=== PATIENT | male | born 1995 | race Caucasian/White ===

== ENCOUNTER 2018-06-28 19:41 | Emergency (ER) | payer OTHER ==
--- NOTE | 2018-06-28 21:34 | EDPHY ---
H & P Stated Complaint: 2 WKS: 'WEIRD FEELING IN MY HEAD', FEELINGS OF THROAT SWELLING Time Seen by Provider: 06/28/18 21:43 HPI/ROS: HPI CHIEF COMPLAINT: Anxiety, throat discomfort, pressure behind ears, palpitations HISTORY OF PRESENT ILLNESS: This is a very pleasant 22-year-old male, no significant medical history, otherwise healthy, suffers from anxiety and depression he presents emergency room stating he feels very anxious additionally reports that approximately 2-3 weeks ago he felt like his head was going to explode. He no longer feels this. Ever since then he has been concerned that his "brain has been swelling" he denies fever. Additionally reports that he has had a sore throat. He reports they went to urgent care and had a negative strep and negative mono. He also reports at times he wakes up feeling anxious and his heart racing. He denies chest pain. He denies current fever. Currently denies any headache neck pain neck stiffness, denies vomiting or diarrhea. Denies recent illness. Past Medical History: Anxiety and depression. Not on any medications. Past Surgical History: Denies recent surgical history Social History: Smokes marijuana. Denies drugs or regular use alcohol tobacco. [employer] student. Family History: Noncontributory ROS REVIEW OF SYSTEMS: 10 Systems were reviewed and negative with the exception of the elements mentioned in the history of present illness. Exam Constitutional appears well nontoxic no acute distress, triage nursing summary reviewed, vital signs reviewed, awake/alert. Vital signs stable. Eyes normal conjunctivae and sclera, EOMI, PERRLA. TMs visualized bilaterally some fluid behind both TMs. But no signs of infection. HENT posterior pharynx mild erythema, 3+ tonsillar bed symmetrical, no exudate , no [employer] RPA, uvula midline moist mucus membranes, no epistaxis, neck supple/ no meningismus, no raccoon eyes. Respiratory clear to auscultation bilaterally, normal breath sounds, no respiratory distress, no wheezing. Cardiovascular rate normal, regular rhythm, no murmur, no edema, distal pulses normal. Gastrointestinal soft, non-tender, no rebound, no guarding, normal bowel sounds, no distension, no pulsatile mass. Genitourinary no CVA tenderness. Musculoskeletal no midline vertebral tenderness, full range of motion, no calf swelling, no tenderness of extremities, no meningismus, good pulses, neurovascularly intact. Skin pink, warm, & dry, no rash, skin atraumatic. Neurologic nonfocal normal neurological exam. awake, alert and oriented x 3, AAOx3, moves all 4 extremities equally, motor intact, sensory intact, CN II-XII intact, normal cerebellar, normal vision, normal speech. Psychiatric normal mood/affect. Heme/Lymph/Immune no lymphadenopathy. Differential Diagnosis: Includes but is not limited to in a particular order acute anxiety, panic attack, viral pharyngitis, strep pharyngitis, cardiac arrhythmia, electrolyte disturbance, anemia Medical Decision Making: Plan for this patient IV establishment IV fluid bolus , basic blood work, electrolytes, EKG, chest x-ray, throat swab strep. Forsyth test. Re-evaluation: EKG interpretation by me on record in [employer] system. Impression time of EKG 2154: Ectopic atrial rhythm 82. No signs of acute ischemia no signs of cardiac arrhythmia no signs of WPW or Brugada. ED x-ray chest one view: Negative for acute cardiopulmonary disease. 2239 the patient reports to me he is having anxiety attack. He is requesting anxiety medicine. I have ordered this patient 1 mg IV Ativan Discussed the patient's EKG results with him. He has a ectopic atrial rhythm he has been on the monitor for over 2 hr without any signs of cardiac arrhythmia. He denies any chest pain or shortness of breath. TSH has been ordered and is pending. He will need to follow up this. Return precautions discussed with him. Additionally for palpitations he may follow up with Cardiology. Return emergency room if chest pain shortness of breath, palpitations, not doing well. He is comfortable this plan. Father at bedside is comfortable this plan. 1219: Patient received 1 mg IV Ativan is doing much better this his anxiety is well controlled, here in emergency room recommend following up his primary care doctor about his anxiety. Source: Patient - Personal History Current Tetanus/Diphtheria Vaccine: Yes - Medical/Surgical History Hx Asthma: No Hx Chronic Respiratory Disease: No Hx Diabetes: No Hx Cardiac Disease: No Hx Renal Disease: No Hx Cirrhosis: No Hx Alcoholism: No Hx HIV/AIDS: No Hx Splenectomy or Spleen Trauma: No Other PMH: DENIES - Social History Smoking Status: Never smoked Constitutional: Initial Vital Signs Temperature (C) 36.8 C 06/28/18 19:53 Heart Rate 88 06/28/18 19:53 Respiratory Rate 20 06/28/18 19:53 Blood Pressure 147/78 H 06/28/18 19:53 O2 Sat (%) 97 06/28/18 19:53 O2 Delivery Mode Room Air Allergies/Adverse Reactions: No Known Allergies Allergy (Unverified 06/28/18 19:52) Home Medications: Medication Instructions Recorded Azithromycin 06/28/18 Caffeine 06/28/18 Prednisone 06/28/18 Medical Decision Making - Diagnostics Imaging Results: Imaging Impressions Chest X-Ray 06/28/18 21:42 Impression: Normal chest x-ray. - Data Points Laboratory Results: Laboratory Results 06/28/18 21:55 06/28/18 21:55 06/28/18 06/28/18 06/28/18 21:55 21:55 21:55 WBC 13.09 10^3/uL H 10^3/uL (3.80-9.50) RBC 5.38 10^6/uL 10^6/uL (4.40-6.38) Hgb 16.7 g/dL g/dL (13.7-17.5) Hct 49.1 % % (40.0-51.0) MCV 91.3 fL fL (81.5-99.8) MCH 31.0 pg pg (27.9-34.1) MCHC 34.0 g/dL g/dL (32.4-36.7) RDW 12.9 % % (11.5-15.2) Plt Count 285 10^3/uL 10^3/uL (150-400) MPV 9.5 fL fL (8.7-11.7) Neut % (Auto) 72.8 % % (39.3-74.2) Lymph % (Auto) 20.6 % % (15.0-45.0) [place] % (Auto) 5.2 % % (4.5-13.0) Eos % (Auto) 0.3 % L % (0.6-7.6) Baso % (Auto) 0.6 % % (0.3-1.7) Nucleat RBC Rel Count 0.0 % % (0.0-0.2) Absolute Neuts (auto) 9.53 10^3/uL H 10^3/uL (1.70-6.50) Absolute Lymphs (auto) 2.69 10^3/uL 10^3/uL (1.00-3.00) Absolute Monos (auto) 0.68 10^3/uL 10^3/uL (0.30-0.80) Absolute Eos (auto) 0.04 10^3/uL 10^3/uL (0.03-0.40) Absolute Basos (auto) 0.08 10^3/uL 10^3/uL (0.02-0.10) Absolute Nucleated RBC 0.00 10^3/uL 10^3/uL (0-0.01) Immature Gran % 0.5 % % (0.0-1.1) Immature Gran # 0.07 10^3/uL 10^3/uL (0.00-0.10) Sodium 136 mEq/L mEq/L (135-145) Potassium 3.5 mEq/L mEq/L (3.5-5.2) Chloride 105 mEq/L mEq/L (97-110) Carbon Dioxide 24 mEq/l mEq/l (22-31) Anion Gap 7 mEq/L mEq/L (6-14) BUN 21 mg/dL mg/dL (7-23) Creatinine 0.9 mg/dL mg/dL (0.7-1.3) Estimated GFR > 60 Glucose 85 mg/dL mg/dL (70-100) Calcium 9.4 mg/dL mg/dL (8.5-10.4) Monoscreen NEGATIVE (NEGATIVE) Group A Strep Screen Group A Strep DNA 06/28/18 21:50 WBC RBC Hgb Hct MCV MCH MCHC RDW Plt Count MPV Neut % (Auto) Lymph % (Auto) [place] % (Auto) Eos % (Auto) Baso % (Auto) Nucleat RBC Rel Count Absolute Neuts (auto) Absolute Lymphs (auto) Absolute Monos (auto) Absolute Eos (auto) Absolute Basos (auto) Absolute Nucleated RBC Immature Gran % Immature Gran # Sodium Potassium Chloride Carbon Dioxide Anion Gap BUN Creatinine Estimated GFR Glucose Calcium Monoscreen Group A Strep Screen NEGATIVE (NEGATIVE) Group A Strep DNA Pending Medications Given: Guaifenesin (Mucinex) 1,200 mg PO BID FLORENTINO Stop: 12/25/18 22:29 Last Admin: 06/28/18 23:58 Dose: 1,200 mg Discontinued Medications Sodium Chloride (Ns) 1,000 mls @ 0 mls/hr IV EDNOW ONE; Wide Open PRN Reason: Protocol Stop: 06/28/18 21:43 Last Admin: 06/28/18 21:59 Dose: 1,000 mls Lorazepam (Ativan Injection) 1 mg IVP EDNOW ONE Stop: 06/28/18 22:40 Last Admin: 06/28/18 22:42 Dose: 1 mg Departure - Departure Disposition: Home, Routine, Self-Care Clinical Impression: Anxiety attack, Sinus congestion Condition: Good Instructions: Guaifenesin (By mouth), Cold Symptoms (ED), Anxiety (ED) Additional Instructions: 1. Drink lots of fluids stay well-hydrated 2. Return emergency room if you doing worse. 3. I do recommend you see her primary care doctor about you're anxiety 4. Mucinex may help you with your congestion. 5. May follow up with Cardiology Referrals: NONE *PRIMARY CARE P,. [Primary Care Provider] - As per Instructions [facility] [Clinic] - As per Instructions Nigel Schuster MD [Medical Doctor] - As per Instructions
[2018-06-28] MEDS ORDERED: NS 1,000 ML IV ONE (21:42)
[2018-06-28 22:07] LABS: PLATELET COUNT 285 10^3/uL (150-400)
[2018-06-28] MEDS ORDERED: guaiFENesin 600 MG TAB.ER PO SCH (22:30)
[2018-06-28] MEDS ORDERED: LORazepam 2 MG/ML INJ IVP ONE (22:39)
[2018-06-29 00:03] VITALS: BP 129/93
--- NOTE | 2018-06-29 08:16 | CPEKG ---
Test Reason : OPEN Blood Pressure : / mmHG Vent. Rate : 082 BPM Atrial Rate : 082 BPM P-R Int : 169 ms QRS Dur : 102 ms QT Int : 388 ms P-R-T Axes : -84 015 048 degrees QTc Int : 453 ms Ectopic atrial rhythm Confirmed by Rinku Martino ([id number]) on 06/29/2018 8:16:09 AM Referred By: Rinku Martino Confirmed By:Rinku Martino
[2018-06-29 19:57] LABS: GROUP A STREP DNA (THROAT) NEGATIVE (NEGATIVE)
== END 2018-06-29 00:43 | disposition home or self-care (01) ==
DX: F41.9 Anxiety disorder, unspecified (principal); R09.81 Nasal congestion; R00.2 Palpitations; E86.9 Volume depletion, unspecified
CPT/HCPCS: 96374; J2060